=== PATIENT | male | born 1980 | race Caucasian/White ===

== ENCOUNTER 2020-11-11 14:43 | Emergency (ER) | payer OTHER ==
[~2020-11-11] VITALS: Ht 170.2 cm; Wt 81.6 kg
--- NOTE | 2020-11-11 15:04 | NUR ---
pt rec'd to er via [facility] pt was found etoh + and homeless ua given and labs drawn sent to lab. montdanika applied sr given water resting AWAITING EVALUATION BY ER PROVIDER.
--- NOTE | 2020-11-11 15:37 | NUR ---
pt sleeping soundly cont to [facility]ior
--- NOTE | 2020-11-11 17:40 | NUR ---
pt stable for d/c ate dinner and feels better
[2020-11-11 17:41] VITALS: BP 122/75
--- NOTE | 2020-11-11 17:44 | NUR ---
Pt Ambulatory, Gait even and steady BRP wanting to go "Im ok now feel better". Refused placement and resources for homelessness and opting to go back to previous living condition Patient discharged to home in stable condition. Written and verbal after care instructions given. Patient verbalizes understanding of instruction.
--- NOTE | 2020-11-11 18:01 | NUR ---
PT. VERBALIZED UNDERSTANDING OF AFTERCARE INSTRUCTIONS.
== END 2020-11-11 18:01 | disposition home or self-care (01) ==
LOC: ER 14:47
DX: F10.229 Alcohol dependence with intoxication, unspecified (principal); Z59.0 Homelessness; Y90.9 Presence of alcohol in blood, level not specified